=== PATIENT | male | born 1945 | race Caucasian/White ===

== ENCOUNTER 2018-01-14 13:53 | Emergency (ER) | payer OTHER, MEDICARE ==
[2018-01-14] MEDS ORDERED: ONDANSETRON 4 MG/2 ML VIAL IVP STA (14:19)
[2018-01-14] MEDS ORDERED: MORPHINE SULFATE 4 MG/ML SYRINGE IV STA (14:19)
[2018-01-14] MEDS ORDERED: SODIUM CHLORIDE 0.9% 1,000 ML IV STA (14:19)
[2018-01-14 14:43] LABS: Basophils % (A) 0 %; Eosinophils # (A) 0.2 k/uL (0-0.7); Eosinophils % (A) 3 %; HCT 42.3 % (39.0-53.0); HGB 14.6 gm/dL (13.0-17.5); Lymphocytes % (A) 17 %; MCH 32.7 pg (25.0-35.0); MCHC 34.5 g/dL (31.0-37.0); MCV 94.7 fL (80.0-100.0); Monocytes # (A) 0.5 k/uL (0-1.0); Monocytes % (A) 9 %; Neutrophils # (A) 4.2 k/uL (1.3-7.7); Neutrophils % (A) 69 %; Platelet Count 172 k/uL (150-450); RBC 4.46 m/uL (4.30-5.90); RDW 14.7 % (11.5-15.5); WBC 6.2 k/uL (3.8-10.6)
[2018-01-14 14:52] LABS: ALT 37 U/L (21-72); AST 25 U/L (17-59); Albumin 4.8 g/dL (3.5-5.0); Alkaline Phosphatase 58 U/L (38-126); Anion Gap 17 mmol/L; Blood Urea Nitrogen 27 mg/dL (9-20); Calcium 9.8 mg/dL (8.4-10.2); Carbon Dioxide 23 mmol/L (22-30); Chloride 105 mmol/L (98-107); Glucose 97 mg/dL (74-99); Sodium 145 mmol/L (137-145); Total Bilirubin 0.5 mg/dL (0.2-1.3); Total Protein 7.3 g/dL (6.3-8.2)
--- NOTE | 2018-01-14 14:55 | ED ---
Headache HPI - General Chief Complaint: Headache Stated Complaint: Headache Time Seen by Provider: 01/14/18 14:09 Mode of arrival: ambulatory Limitations: no limitations - History of Present Illness Initial Comments: 72 years old male presents with a headache ongoing for the last 3 weeks, he went to see his doctor at the [place] clinic yesterday they wanted to send her for a CAT scan down [place] his headache got worse he called his doctor at the [place] and they advised him to come to the [facility] [place] is mostly located over the frontal area over frontal sinuses bilaterally, he had a similar kind of a headache a few years ago at that time he was investigated for temporal arteritis in [place] he had a temporal artery biopsy done bilateral. He denies any neck stiffness no chest pain or shortness of breath no abdominal pain no frequency urgency dysuria no symptoms of TIA or CVA - Related Data Home Medications Medication Instructions Recorded Confirmed Hydrochlorothiazide [Hydrodiuril] 25 mg PO DAILY 04/26/14 01/14/18 Lisinopril [Zestril] 10 mg PO BID 04/26/14 01/14/18 Metoprolol Tartrate [Lopressor] 25 mg PO BID 04/26/14 01/14/18 Nitroglycerin Sl Tabs [Nitrostat] 0.4 mg SUBLINGUAL Q5M PRN 06/07/15 01/14/18 Aspirin 81 mg PO DAILY 01/14/18 01/14/18 Atorvastatin Calcium [Lipitor] 40 mg PO HS 01/14/18 01/14/18 Cholecalciferol [Vitamin D3] 1,000 unit PO HS 01/14/18 01/14/18 Clopidogrel Bisulfate [Plavix] 75 mg PO DAILY 01/14/18 01/14/18 Ferrous Sulfate [Feosol] 325 mg PO DAILY 01/14/18 01/14/18 Loratadine [Claritin] 10 mg PO DAILY 01/14/18 01/14/18 [place]-3 Fatty Acids/Fish Oil [Fish 1 cap PO BID 01/14/18 01/14/18 Oil 1,000 mg Softgel] Oxybutynin Chloride 5 mg PO TID 01/14/18 01/14/18 Tamsulosin [Flomax] 0.4 mg PO DAILY 01/14/18 01/14/18 Previous Rx's Medication Instructions Recorded predniSONE 50 mg PO DAILY #5 tablet 01/14/18 Allergies Allergy/AdvReac Type Severity Reaction Status Date / Time No Known Allergies Allergy Verified 01/14/18 14:07 Review of Systems ROS Statement: Those systems with pertinent positive or pertinent negative responses have been documented in the HPI. ROS Other: All systems not noted in ROS Statement are negative. Past Medical History Past Medical History: Coronary Artery Disease (CAD), Cancer, Hyperlipidemia, Hypertension Additional Past Medical History / Comment(s): Prostate CA/radiation History of Any Multi-Drug Resistant Organisms: None Reported Past Surgical History: Heart Catheterization With Stent Past Anesthesia/Blood Transfusion Reactions: No Reported Reaction Date of Last Stent Placement:: 2011 Past Psychological History: No Psychological Hx Reported Smoking Status: Former smoker Past Alcohol Use History: None Reported Past Drug Use History: None Reported General Exam - General Exam Comments Initial Comments: General: The patient is awake and alert, in no distress, and does not appear acutely ill. Skin: Skin is warm and dry and no rashes or lesions are noted. Eye: Pupils are equal, round and reactive to light, extra-ocular movements are intact; there is normal conjunctiva bilaterally. Ears, nose, mouth and throat: There are moist mucous membranes and no oral lesions. He is tender over the right temporal area Neck: The neck is supple, there is no tenderness , no neck stiffness no signs of any meningitis Cardiovascular: There is a regular rate and rhythm. No murmur, rub or gallop is appreciated. Respiratory: To auscultation bilateral, no wheezing no rhonchi no distress respiratory justin noticed Gastrointestinal: Soft, non-distended, non-tender abdomen without masses or organomegaly noted. There is no rebound or guarding present. Bowel sounds are unremarkable. Back: There is no tenderness to palpation in the midline. There is no obvious deformity. Musculoskeletal: Normal ROM, no tenderness, There is no pedal edema. There is no calf tenderness or swelling. No cords were appreciated. Neurological: CN II-XII intact, Cranial nerves III through XII are intact. There are no obvious motor or sensory deficits. Coordination appears grossly intact. Speech is normal. Psychiatric: Cooperative, appropriate mood & affect, normal judgment. Limitations: no limitations Course Vital Signs 01/14/18 13:59 Temperature 98.0 F Pulse Rate 69 Respiratory 118 H Rate Blood Pressure 180/83 O2 Sat by Pulse 98 Oximetry , His headache is ongoing for [address] is ordered along with the sed rate Reassessment term head CT is normal sed rate is within normal range white count is within normal range patient be [facility] he be gone home on a prednisone 50 mg once daily for next 5 days, he is not diabetic Medical Decision Making - Lab Data Result diagrams: 01/14/18 14:31 01/14/18 14:31 Lab Results 01/14/18 01/14/18 Range/Units 14:31 14:31 WBC 6.2 (3.8-10.6) k/uL RBC 4.46 (4.30-5.90) m/uL Hgb 14.6 (13.0-17.5) gm/dL Hct 42.3 (39.0-53.0) % MCV 94.7 (80.0-100.0) fL MCH 32.7 (25.0-35.0) pg MCHC 34.5 (31.0-37.0) g/dL RDW 14.7 (11.5-15.5) % Plt Count 172 (150-450) k/uL Neutrophils % 69 % Lymphocytes % 17 % Monocytes % 9 % Eosinophils % 3 % Basophils % 0 % Neutrophils # 4.2 (1.3-7.7) k/uL Lymphocytes # 1.0 (1.0-4.8) k/uL Monocytes # 0.5 (0-1.0) k/uL Eosinophils # 0.2 (0-0.7) k/uL Basophils # 0.0 (0-0.2) k/uL ESR 14 (0-15) mm/hr Sodium 145 (137-145) mmol/L Potassium 4.0 (3.5-5.1) mmol/L Chloride 105 (98-107) mmol/L Carbon Dioxide 23 (22-30) mmol/L Anion Gap 17 mmol/L BUN 27 H (9-20) mg/dL Creatinine 0.90 (0.66-1.25) mg/dL Est GFR (CKD-EPI)AfAm >90 (>60 ml/min/1.73 sqM) Est GFR (CKD-EPI)NonAf 86 (>60 ml/min/1.73 sqM) Glucose 97 (74-99) mg/dL Calcium 9.8 (8.4-10.2) mg/dL Total Bilirubin 0.5 (0.2-1.3) mg/dL AST 25 (17-59) U/L ALT 37 (21-72) U/L Alkaline Phosphatase 58 (38-126) U/L Total Protein 7.3 (6.3-8.2) g/dL Albumin 4.8 (3.5-5.0) g/dL Disposition Clinical Impression: Headache Disposition: HOME SELF-CARE Condition: Good Instructions: Acute Headache (ED) Prescriptions: predniSONE 50 mg PO DAILY #5 tablet Is patient prescribed a controlled substance at d/c from ED?: No When asked, does pt state using other controlled substances?: No If prescribed controlled substance>3 days was MAPS reviewed?: No If opioid is for acute pain is fill amount 7 days or less?: No If Rx opioid, was Start Talking consent form obtained?: No Referrals: [facility],Clinic [Primary Care Provider] - 1-2 days
--- NOTE | 2018-01-14 15:02 | CT ---
EXAMINATION TYPE: CT brain wo con DATE OF EXAM: 01/14/2018 COMPARISON: 06/07/2015 HISTORY: Worsening headache x [address] DLP: [address] of the brain was performed. The ventricles, basal cisterns and sulci overlying the cerebral convexities demonstrate mild enlargem ent. There is no evidence for intracranial hemorrhage or sulcal effacement. There is decreased attenuation about the periventricular white matter and deep white matter of both c erebral hemispheres, compatible with chronic small vessel ischemia. Differential diagnosis does inclu de demyelination. No mass effects are seen.No midline shift. Osseous calvarium is intact. If symptoms persist consider MRI. IMPRESSION: 1. Age related atrophic and chronic small vessel ischemic change without acute intracranial process s een at this time.
[2018-01-14 15:32] LABS: Erythrocyte Sedimentation Rate 14 mm/hr (0-15)
[2018-01-14 16:06] VITALS: BP 125/62; PULSE 55; RESP 18; TEMP 97.2
== END 2018-01-14 16:06 | disposition home or self-care (01) ==
LOC: EC 13:53
DX: R51 Headache (principal); I25.10 Atherosclerotic heart disease of native coronary artery without angina pectoris; E78.5 Hyperlipidemia, unspecified; I10 Essential (primary) hypertension; Z85.46 Personal history of malignant neoplasm of prostate; Z87.891 Personal history of nicotine dependence; Z79.02 Long term (current) use of antithrombotics/antiplatelets; Z79.82 Long term (current) use of aspirin; Z79.899 Other long term (current) drug therapy; Z95.1 Presence of aortocoronary bypass graft
CPT/HCPCS: 36415; 80053; 85652; 85025; 70450; 99284; 96374; 96375; 96361; J2270; J2405

== ENCOUNTER 2018-10-05 13:05 | Emergency (ER) | payer OTHER, MEDICARE ==
[2018-10-05 13:19] VITALS: RESP 18; TEMP 98.8
[2018-10-05] MEDS ORDERED: IBUPROFEN 600 MG TAB PO STA (14:17)
--- NOTE | 2018-10-05 14:57 | XR ---
EXAMINATION TYPE: XR chest 2V DATE OF EXAM: 10/05/2018 COMPARISON: Chest x-ray August 04, 2015 HISTORY: History of coronary artery disease presents with chest pain TECHNIQUE: Frontal and lateral views of the chest are obtained. FINDINGS: There is some chronic parenchymal change without suspicious focal air space opacity, pleur al effusion, or pneumothorax seen. The cardiac silhouette size is within normal limits. The osseou s structures are intact. IMPRESSION: No acute cardiopulmonary process. No significant change from prior.
--- NOTE | 2018-10-05 14:58 | XR ---
EXAMINATION TYPE: XR soft tissue neck DATE OF EXAM: 10/05/2018 COMPARISON: NONE HISTORY: 73-year-old male for trauma and pain TECHNIQUE: 2 views FINDINGS: Epiglottis is normal as are the prevertebral soft tissues. No subglottic airway narrowing. Nasopharyn x and oropharynx are patent. Endplate spondylosis in the cervical spine. No retained radiopaque forei gn body. IMPRESSION: No abnormal airway narrowing or specific abnormality seen.
--- NOTE | 2018-10-05 15:11 | ED ---
ENT HPI - General Chief complaint: ENT Stated complaint: Sore [facility] Source: patient Mode of arrival: ambulatory Limitations: no limitations - History of Present Illness Initial comments: 73-year-old male with past medical history of CAD hypertension presenting today for chief complaint of sore throat, congestion and cough. Patient states he has had a sore throat for the past week, he states it has begun to subside today. He states his is developing similar symptoms and has now developed a dry cough over the past 24 hours. He denies any fever, chills, night sweats. Patient denies any significant sputum production. Patient denies abdominal pain, nausea, vomiting, jaw pain, RE paresthesias, chest pain, dyspnea, dyspnea exertion. Patient denies any pain localized to the neck externally. He states he has pain with swallowing. He denies taking any medications prior to bedtime , denies ingestion of any large pills patient denies any history of thyroid disease, patient denies any history of GERD Patient denies radiation of pain or associated symptoms such as dizziness, headache. Patient denies any hemoptysis, vomiting, hematemesis. Patient denies any diarrhea No rashes. Upon arrival patient is well-appearing vital signs within normal limits. Patient states he attempted to obtain an appointment at the [place] clinic however he was told to come to the ER if he had a medical condition as they were closed today. Patient presented for evaluation. Upon arrival patient appears well in no acute distress. - Related Data Home Medications Medication Instructions Recorded Confirmed Hydrochlorothiazide [Hydrodiuril] 25 mg PO DAILY 04/26/14 01/14/18 Lisinopril [Zestril] 10 mg PO BID 04/26/14 01/14/18 Metoprolol Tartrate [Lopressor] 25 mg PO BID 04/26/14 01/14/18 Nitroglycerin Sl Tabs [Nitrostat] 0.4 mg SUBLINGUAL Q5M PRN 06/07/15 01/14/18 Aspirin 81 mg PO DAILY 01/14/18 01/14/18 Atorvastatin Calcium [Lipitor] 40 mg PO HS 01/14/18 01/14/18 Cholecalciferol [Vitamin D3] 1,000 unit PO HS 01/14/18 01/14/18 Clopidogrel Bisulfate [Plavix] 75 mg PO DAILY 01/14/18 01/14/18 Ferrous Sulfate [Feosol] 325 mg PO DAILY 01/14/18 01/14/18 Loratadine [Claritin] 10 mg PO DAILY 01/14/18 01/14/18 [place]-3 Fatty Acids/Fish Oil [Fish 1 cap PO BID 01/14/18 01/14/18 Oil 1,000 mg Softgel] Oxybutynin Chloride 5 mg PO TID 01/14/18 01/14/18 Tamsulosin [Flomax] 0.4 mg PO DAILY 01/14/18 01/14/18 Previous Rx's Medication Instructions Recorded predniSONE 50 mg PO DAILY #5 tablet 01/14/18 Allergies Allergy/AdvReac Type Severity Reaction Status Date / Time No Known Allergies Allergy Verified 10/05/18 13:19 Review of Systems ROS Statement: Those systems with pertinent positive or pertinent negative responses have been documented in the HPI. ROS Other: All systems not noted in ROS Statement are negative. Past Medical History Past Medical History: Coronary Artery Disease (CAD), Cancer, Hyperlipidemia, Hypertension Additional Past Medical History / Comment(s): Prostate CA/radiation History of Any Multi-Drug Resistant Organisms: None Reported Past Surgical History: Heart Catheterization With Stent Past Anesthesia/Blood Transfusion Reactions: No Reported Reaction Date of Last Stent Placement:: 2011 Past Psychological History: No Psychological Hx Reported, Depression, PTSD Smoking Status: Former smoker Past Alcohol Use History: Rare Past Drug Use History: None Reported General Exam - General Exam Comments Initial Comments: General: The patient is awake and alert, in no distress, and does not appear acutely ill. Eye: +3 mm pupils are equal, round and reactive to light, extra-ocular movements are intact. No nystagmus. There is normal conjunctiva bilaterally. No signs of icterus. Ears, nose, mouth and throat: There are moist mucous membranes and no oral lesions. Oropharynx erythematous, no tonsillar enlargement or exudates lesions. Uvula midline. No muffled voice no tripoding. Patient is able to swallow without difficulty. No anterior cervical lymph adenopathy. No lesions of the face or tympanic membranes. External auditory canals the normal limits. No nuchal rigidity, there is no pain to palpation of the neck externally. Neck: The neck is supple, there is no tenderness or JVD. Cardiovascular: There is a regular rate and rhythm. No murmur, rub or gallop is appreciated. Respiratory: Lungs are clear to auscultation, respirations are non-labored, breath sounds are equal. No wheezes, stridor, rales, or rhonchi. Dry cough on exam. Gastrointestinal: Soft, non-distended, non-tender abdomen without masses or organomegaly noted. There is no rebound or guarding present. No CVA tenderness. Bowel sounds are unremarkable. Musculoskeletal: Normal ROM, no tenderness. Strength 5/5. Sensation intact. Radial pulses equal bilaterally 2+. Neurological: A&O x 3. CN II-XII intact, There are no obvious motor or sensory deficits. Coordination appears grossly intact. Speech is normal. Skin: Skin is warm and dry and no rashes or lesions are noted. Psychiatric: Cooperative, appropriate mood & affect, normal judgment. Limitations: no limitations Course Vital Signs 10/05/18 10/05/18 13:13 15:15 Temperature 98.8 F Pulse Rate 70 68 Respiratory 18 18 Rate Blood Pressure 121/72 116/62 O2 Sat by Pulse 95 98 Oximetry Medical Decision Making - Medical Decision Making Well-appearing 73-year-old male presenting with upper respiratory symptoms. Patient does have a with similar symptoms. Strep testing and implanted testing negative. Chest x-ray negative for acute process. Patient denies any concerning associated symptoms. Patient appears well vital signs within acceptable limits. Patient does not have a concerning history for esophagitis, he does not history of thyroid disease or GERD. At this time do feel patient is stable for discharge with follow-up with ears nose throat for persistent symptoms. [facility] provider in the next 1-2 days. Patient is agreeable plan discharge tonight questions at this time. Patient started to use ibuprofen or Tylenol for pain management. Patient states there has been improvement since the initial onset. Patient discharged stable condition appearing well I did discuss the case with attending provider Dr. Prakash prior to patient's discharge. I discussed return parameters at length and in detail with patient who verbalized understanding. - Lab Data Lab Results 10/05/18 10/05/18 Range/Units 13:46 13:46 Influenza Type A RNA Not Detected (Not Detectd) Influenza Type B (PCR) Not Detected (Not Detectd) Group A Strep Rapid Negative (Negative) Disposition Clinical Impression: Pharyngitis Disposition: HOME SELF-CARE Condition: Good Instructions (If sedation given, give patient instructions): Pharyngitis (ED) Additional Instructions: Please use medication as discussed. Please follow-up with family doctor in the next 2 days, please follow-up with ENT as discussed in next 2-3 days. Please return to emergency room if the symptoms increase or worsen or for any other concerns. Is patient prescribed a controlled substance at d/c from ED?: No Referrals: [facility],Clinic [Primary Care Provider] - 1-2 days Go Byrd DO [Doctor of Osteopathic Medicine] - 1-2 days Time of Disposition: 15:10
[2018-10-05 15:17] VITALS: BP 116/62; PULSE 68
== END 2018-10-05 15:14 | disposition home or self-care (01) ==
LOC: EC 13:05
DX: J02.9 Acute pharyngitis, unspecified (principal); E78.5 Hyperlipidemia, unspecified; I10 Essential (primary) hypertension; I25.10 Atherosclerotic heart disease of native coronary artery without angina pectoris; Z87.891 Personal history of nicotine dependence; Z79.02 Long term (current) use of antithrombotics/antiplatelets; Z79.82 Long term (current) use of aspirin; Z79.899 Other long term (current) drug therapy; Z85.46 Personal history of malignant neoplasm of prostate; Z92.3 Personal history of irradiation; Z95.5 Presence of coronary angioplasty implant and graft
CPT/HCPCS: 70360; 71046; 87081; 87430; 87502; 99283

== ENCOUNTER → 2019-01-12 | Outpatient (CLI) | payer MEDICARE, OTHER ==
--- NOTE | 2019-01-12 12:34 | CONS ---
CONSULTATION DATE OF SERVICE: 01/12/2019 This 73-year-old gentleman has been evaluated in the sleep center for possible obstructive sleep apnea-hypopnea syndrome. HISTORY OF PRESENT ILLNESS/SLEEP-WAKE EVALUATION: Patient usual sleep schedule from 11 p.m. to 6 a.m. Sometimes he does have problem with falling asleep, has TV set in bedroom, usually sleeps on the side position in a separate room from his because of the significantly extremely loud snoring. He wakes up from sleep around 4 times with nocturia and dry mouth. Has to drink water at night time. In the morning, he wakes up tired, has difficulties to pay attention, worries about his sleep, has problems with memory, concentration, irritability, depression, anxiety, . [place] Sleepiness Scale is 5. He usually takes one nap afternoon, usually feels refreshed after a nap and can see dreams during nap. The patient has significant amount of bad and vivid dreams during the night. Usually no out of dream movements or kicking. PAST MEDICAL HISTORY: Positive for coronary artery disease, status post stent insertion, hypertension, history of stroke in 2015 with losing vision in the right eye after stroke, prostate CA with status post radiation therapy, hyperlipidemia, iron deficiency anemia, allergies, nasal septum deviation. PAST SURGICAL HISTORY: Stent insertion in 2010, brain biopsy in 2014 when the patient lost his vision right eye. MEDICATIONS: Baby aspirin, ferrous sulfate supplement, oxybutynin, hydrochlorothiazide, tamsulosin, clopidogrel, metoprolol, lisinopril, atorvastatin, vitamin D supplement. SOCIAL HISTORY: Positive for smoking about one pack for 20 years, quit 25 years ago. Alcohol consumption about once per week or 2 weeks. FAMILY HISTORY: Hypertension, hyperlipidemia, stroke, sinus problems, sleep apnea, headaches, cancer, acid reflux, pneumonia, prostate CA, mother history of cancer of the eye. REVIEW OF SYSTEMS: Multiple awakenings during the sleep, tiredness and sleepiness during the day. PHYSICAL EXAMINATION: During physical exam, a gentleman without distress. VITAL SIGNS: BP 132/65, HR 64, RR 16, height 5 feet 8 inches, weight 245 pounds, BMI 37.2, temperature 98.4, oxygen saturation at room air 95%. HEENT: PERRLA, EOMI. Oropharynx extremely low position of soft palate. Mallampati 4. Some restriction of nasal breathing. Small pupils. Patient does not see with his right eye. NECK: Wide neck 19 inches in circumference. LUNGS: Clear to percussion and to auscultation. Good air exchange. No wheezing or rhonchi. HEART: S1, S2 regular. No murmurs, gallops, or rubs. ABDOMEN: Obese. EXTREMITIES: No clubbing or cyanosis. DESIGN TRANSFERRER: Awake, alert, and oriented X3. Cranial nerves 2 to 7 intact. There is no fasciculation or atrophy. noted. No focal deficits observed. IMPRESSION: 1. Loud snoring, multiple awakenings from sleep with dry mouth, extremely low position of soft palate, Mallampati 4, some restriction of nasal breathing, wide neck, obstructive sleep apnea-hypopnea syndrome. 2. Obesity, body mass index 37.2. 3. Hypertension. 4. Coronary artery disease, status post stent insertion. 5. History of stroke in 2015 with loss of vision of the right eye after stroke. 6. History of prostate carcinoma, status post radiation treatment. 7. Hyperlipidemia. 8. History of iron deficiency anemia. 9. Allergy. 10.Some restriction of nasal breathing, possibly nasal septum deviation, asymmetric nostrils. PLAN: 1. Polysomnography for evaluation of patient's breathing during sleep. 2. CPAP/BiPAP titration if sleep study confirms obstructive sleep apnea-hypopnea syndrome. 3. Preferable position during sleep on the side. 4. No driving if patient feels any sleepiness. 5. I will see patient for follow up visit to explain results of testing and following plan. Thank you very much for referring this patient for consultation. Sincerely, Jamil Connell MD, PhD, FAASM Diplomat of [place] [employer] [place] [employer] Serology Teacher of [facility] [place] MMODL / IJN: [id number] /
== END | disposition home or self-care (01) ==
LOC: SLEEP 10:55
PROVIDERS: ATTEND Internal Medicine
DX: G47.33 Obstructive sleep apnea (adult) (pediatric) (principal); R35.1 Nocturia; E66.9 Obesity, unspecified; I10 Essential (primary) hypertension; I25.10 Atherosclerotic heart disease of native coronary artery without angina pectoris; I69.398 Other sequelae of cerebral infarction; H53.8 Other visual disturbances; E78.5 Hyperlipidemia, unspecified; D50.9 Iron deficiency anemia, unspecified; T78.40XA Allergy, unspecified, initial encounter; Z85.46 Personal history of malignant neoplasm of prostate; Z92.3 Personal history of irradiation; Z68.37 Body mass index [BMI] 37.0-37.9, adult; Z83.6 Family history of other diseases of the respiratory system; Z87.891 Personal history of nicotine dependence; Z95.5 Presence of coronary angioplasty implant and graft; Z79.82 Long term (current) use of aspirin; Z79.02 Long term (current) use of antithrombotics/antiplatelets; Z79.899 Other long term (current) drug therapy
CPT/HCPCS: 99211

== ENCOUNTER 2019-10-16 19:20 | Observation (INO) | payer OTHER ==
[2019-10-16] MEDS ORDERED: ASPIRIN 81 MG PO STA (19:40)
[2019-10-16] MEDS ORDERED: NITROGLYCERIN OINT 1 INCH/GM PACKET TOPICAL STA (19:40)
--- NOTE | 2019-10-16 19:49 | ED ---
General Adult HPI - General Chief complaint: Chest Pain Stated complaint: Chest pain Time Seen by Provider: 10/16/19 19:26 Source: patient, RN notes reviewed Mode of arrival: wheelchair Limitations: no limitations - History of Present Illness Initial comments: Patient is a pleasant 74-year-old male presenting to the emergency Department with complaints of chest discomfort. Patient had 2 episodes today. Discomfort is near resolved at this time, rated 1/10. Discomfort is described as tightness in the chest without radiation. Patient did have some associated dyspnea, nausea, and diaphoresis. Patient has a episode around 2:00 today and the second one prior to arrival. Patient does have previous cardiac history including stent placement. Patient did have recent stress test and reported negative heart catheterization several weeks ago. No leg pain or leg swelling. - Related Data Home Medications Medication Instructions Recorded Confirmed Hydrochlorothiazide [Hydrodiuril] 25 mg PO DAILY 04/26/14 01/14/18 Lisinopril [Zestril] 10 mg PO BID 04/26/14 01/14/18 Metoprolol Tartrate [Lopressor] 25 mg PO BID 04/26/14 01/14/18 Nitroglycerin Sl Tabs [Nitrostat] 0.4 mg SUBLINGUAL Q5M PRN 06/07/15 01/14/18 Aspirin 81 mg PO DAILY 01/14/18 01/14/18 Atorvastatin Calcium [Lipitor] 40 mg PO HS 01/14/18 01/14/18 Cholecalciferol [Vitamin D3] 1,000 unit PO HS 01/14/18 01/14/18 Clopidogrel Bisulfate [Plavix] 75 mg PO DAILY 01/14/18 01/14/18 Ferrous Sulfate [Feosol] 325 mg PO DAILY 01/14/18 01/14/18 Loratadine [Claritin] 10 mg PO DAILY 01/14/18 01/14/18 [place]-3 Fatty Acids/Fish Oil [Fish 1 cap PO BID 01/14/18 01/14/18 Oil 1,000 mg Softgel] Oxybutynin Chloride 5 mg PO TID 01/14/18 01/14/18 Tamsulosin [Flomax] 0.4 mg PO DAILY 01/14/18 01/14/18 Previous Rx's Medication Instructions Recorded predniSONE 50 mg PO DAILY #5 tablet 01/14/18 Allergies Allergy/AdvReac Type Severity Reaction Status Date / Time No Known Allergies Allergy Verified 10/16/19 19:26 Review of Systems ROS Statement: Those systems with pertinent positive or pertinent negative responses have been documented in the HPI. ROS Other: All systems not noted in ROS Statement are negative. Constitutional: Denies: fever Eyes: Denies: eye pain ENT: Denies: ear pain Respiratory: Reports: as per HPI. Denies: cough Cardiovascular: Reports: as per HPI, chest pain Endocrine: Denies: fatigue Gastrointestinal: Reports: nausea Genitourinary: Denies: dysuria Musculoskeletal: Denies: back pain Skin: Denies: rash, lesions Neurological: Denies: headache Past Medical History Past Medical History: Coronary Artery Disease (CAD), Cancer, Hyperlipidemia, Hypertension Additional Past Medical History / Comment(s): Prostate CA/radiation History of Any Multi-Drug Resistant Organisms: None Reported Past Surgical History: Heart Catheterization With Stent Past Anesthesia/Blood Transfusion Reactions: No Reported Reaction Date of Last Stent Placement:: 2011 Past Psychological History: No Psychological Hx Reported, Depression, PTSD Smoking Status: Former smoker Past Alcohol Use History: Rare Past Drug Use History: None Reported General Exam Limitations: no limitations General appearance: alert, in no apparent distress Head exam: Present: normocephalic Eye exam: Present: normal appearance, EOMI ENT exam: Present: normal oropharynx Neck exam: Present: normal inspection Respiratory exam: Present: normal lung sounds bilaterally. Absent: chest wall tenderness Cardiovascular Exam: Present: regular rate, normal rhythm Expanded Peripheral pulses: 2+: Radial (R), Radial (L), Posterior Tibialis (R), Posterior Tibialis (L), Dorsalis Pedis (R), Dorsalis Pedis (L) GI/Abdominal exam: Present: soft. Absent: tenderness Extremities exam: Present: normal inspection. Absent: pedal edema, calf tenderness Neurological exam: Present: alert Psychiatric exam: Present: normal affect, normal mood Skin exam: Present: normal color Course Vital Signs 10/16/19 19:21 Temperature 98.0 F Pulse Rate 76 Respiratory 16 Rate Blood Pressure 167/69 O2 Sat by Pulse 97 Oximetry EKG Findings - EKG Comments: EKG Findings:: Normal sinus rhythm 77. [place] 144. QRS 94. QT 36. QTc 436. Normal axis. Normal QRS. No acute ST change. Medical Decision Making - Medical Decision Making Patient reevaluated and resting comfortably in bed, symptom-free. Patient family updated on results and plan. Case was discussed in detail with Dr. Hussein, who will admit covering for this [facility]. - Lab Data Result diagrams: 10/16/19 20:00 10/16/19 20:00 Lab Results 10/16/19 10/16/19 10/16/19 Range/Units 20:00 20:00 20:00 WBC 7.8 (3.8-10.6) k/uL RBC 4.35 (4.30-5.90) m/uL Hgb 14.2 (13.0-17.5) gm/dL Hct 41.7 (39.0-53.0) % MCV 96.0 (80.0-100.0) fL MCH 32.7 (25.0-35.0) pg MCHC 34.1 (31.0-37.0) g/dL RDW 14.4 (11.5-15.5) % Plt Count 162 (150-450) k/uL Neutrophils % 74 % Lymphocytes % 13 % Monocytes % 7 % Eosinophils % 3 % Basophils % 0 % Neutrophils # 5.8 (1.3-7.7) k/uL Lymphocytes # 1.0 (1.0-4.8) k/uL Monocytes # 0.5 (0-1.0) k/uL Eosinophils # 0.2 (0-0.7) k/uL Basophils # 0.0 (0-0.2) k/uL Poikilocytosis Slight PT 10.2 (9.0-12.0) sec INR 1.0 (<1.2) APTT 25.7 (22.0-30.0) sec D-Dimer 0.33 (<0.60) mg/L FEU Sodium 136 L (137-145) mmol/L Potassium 3.8 (3.5-5.1) mmol/L Chloride 101 (98-107) mmol/L Carbon Dioxide 24 (22-30) mmol/L Anion Gap 11 mmol/L BUN 27 H (9-20) mg/dL Creatinine 1.11 (0.66-1.25) mg/dL Est GFR (CKD-EPI)AfAm 77 (>60 ml/min/1.73 sqM) Est GFR (CKD-EPI)NonAf 66 (>60 ml/min/1.73 sqM) Glucose 117 H (74-99) mg/dL Calcium 10.3 H (8.4-10.2) mg/dL Magnesium 1.9 (1.6-2.3) mg/dL Total Bilirubin 0.8 (0.2-1.3) mg/dL AST 30 (17-59) U/L ALT 29 (4-49) U/L Alkaline Phosphatase 59 (38-126) U/L Troponin I (0.000-0.034) ng/mL Total Protein 7.5 (6.3-8.2) g/dL Albumin 4.9 (3.5-5.0) g/dL 10/16/19 Range/Units 20:00 WBC (3.8-10.6) k/uL RBC (4.30-5.90) m/uL Hgb (13.0-17.5) gm/dL Hct (39.0-53.0) % MCV (80.0-100.0) fL MCH (25.0-35.0) pg MCHC (31.0-37.0) g/dL RDW (11.5-15.5) % Plt Count (150-450) k/uL Neutrophils % % Lymphocytes % % Monocytes % % Eosinophils % % Basophils % % Neutrophils # (1.3-7.7) k/uL Lymphocytes # (1.0-4.8) k/uL Monocytes # (0-1.0) k/uL Eosinophils # (0-0.7) k/uL Basophils # (0-0.2) k/uL Poikilocytosis PT (9.0-12.0) sec INR (<1.2) APTT (22.0-30.0) sec D-Dimer (<0.60) mg/L FEU Sodium (137-145) mmol/L Potassium (3.5-5.1) mmol/L Chloride (98-107) mmol/L Carbon Dioxide (22-30) mmol/L Anion Gap mmol/L BUN (9-20) mg/dL Creatinine (0.66-1.25) mg/dL Est GFR (CKD-EPI)AfAm (>60 ml/min/1.73 sqM) Est GFR (CKD-EPI)NonAf (>60 ml/min/1.73 sqM) Glucose (74-99) mg/dL Calcium (8.4-10.2) mg/dL Magnesium (1.6-2.3) mg/dL Total Bilirubin (0.2-1.3) mg/dL AST (17-59) U/L ALT (4-49) U/L Alkaline Phosphatase (38-126) U/L Troponin I <0.012 (0.000-0.034) ng/mL Total Protein (6.3-8.2) g/dL Albumin (3.5-5.0) g/dL - Radiology Data Radiology results: image reviewed (Chest x-ray shows no acute) Disposition Clinical Impression: Chest pain Disposition: ADMITTED IP TO THIS HOSP Is patient prescribed a controlled substance at d/c from ED?: No Referrals: [facility],Clinic [Primary Care Provider] - 1-2 days Decision Time: 20:43
[2019-10-16 20:06] LABS: Basophils % (A) 0 %; Eosinophils # (A) 0.2 k/uL (0-0.7); Eosinophils % (A) 3 %; HCT 41.7 % (39.0-53.0); HGB 14.2 gm/dL (13.0-17.5); Lymphocytes % (A) 13 %; MCH 32.7 pg (25.0-35.0); MCHC 34.1 g/dL (31.0-37.0); Mean Platelet Volume 7.2; Monocytes # (A) 0.5 k/uL (0-1.0); Monocytes % (A) 7 %; Neutrophils # (A) 5.8 k/uL (1.3-7.7); Neutrophils % (A) 74 %; Platelet Count 162 k/uL (150-450); Poikilocytosis Slight; RBC 4.35 m/uL (4.30-5.90); RDW 14.4 % (11.5-15.5); WBC 7.8 k/uL (3.8-10.6)
--- NOTE | 2019-10-16 20:12 | XR ---
EXAMINATION TYPE: XR chest 2V DATE OF EXAM: 10/16/2019 COMPARISON: 10/05/2018 HISTORY: Sore throat TECHNIQUE: 2 views FINDINGS: Heart is normal. Lungs are clear of infiltrate. There are no hilar masses. Costophrenic ang les are clear. There are chest leads. IMPRESSION: Normal chest. No change.
[2019-10-16 20:15] LABS: Albumin 4.9 g/dL (3.5-5.0); Calcium 10.3 mg/dL (8.4-10.2); Magnesium 1.9 mg/dL (1.6-2.3); Potassium 3.8 mmol/L (3.5-5.1); Total Bilirubin 0.8 mg/dL (0.2-1.3); Total Protein 7.5 g/dL (6.3-8.2)
[2019-10-16 20:30] LABS: D-Dimer 0.33 mg/L FEU (<0.60); Partial Thromboplastin Time 25.7 sec (22.0-30.0); Prothrombin Time 10.2 sec (9.0-12.0)
[2019-10-16] MEDS ORDERED: NITROGLYCERIN SL TABS 0.4 MG TAB SUBLINGUAL PRN (20:43)
[2019-10-16] MEDS: NITROGLYCERIN OINT 1 INCH/GM PACKET TOPICAL SCH (23:14)
[2019-10-17 01:09] VITALS: RESP 18
[2019-10-17] MEDS: NITROGLYCERIN OINT 1 INCH/GM PACKET TOPICAL SCH (03:18)
[2019-10-17 03:28] LABS: Cholesterol 141 mg/dL (<200); HDL Cholesterol 28 mg/dL (40-60); Triglycerides 505 mg/dL (<150)
[2019-10-17] MEDS ORDERED: LISINOPRIL 10 MG TAB PO SCH (09:00)
[2019-10-17] MEDS ORDERED: ASPIRIN 325 MG TAB PO SCH (09:00)
[2019-10-17] MEDS ORDERED: METOPROLOL TARTRATE 25 MG TAB PO SCH (09:00)
[2019-10-17] MEDS ORDERED: ASPIRIN 81 MG PO SCH (09:00)
[2019-10-17] MEDS ORDERED: HYDROCHLOROTHIAZIDE 25 MG TAB PO SCH (09:00)
--- NOTE | 2019-10-17 09:24 | US ---
EXAMINATION TYPE: US gallbladder DATE OF EXAM: 10/17/2019 COMPARISON: NONE CLINICAL HISTORY: pain after eating. EXAM MEASUREMENTS: Liver Length: 19.9 cm Gallbladder Wall: 0.2 cm CBD: 0.4 cm Right Kidney: 9.4 x 5.8 x 5.0 cm Pancreas: Tail obscured by overlying bowel gas, visualized portions Liver: Attenuating, enlarged, echogenic echotexture. Hypoechoic area adjacent to the gallbladder nell suring 2.1 x 1.3 x 1.0 cm, possible focal fatty sparring Gallbladder: wnl Evidence for sonographic Montalvo's sign: No CBD: wnl Right Kidney: No hydronephrosis or masses seen IMPRESSION: 1. Findings most commonly related to hepatic steatosis with possible focal fatty sparing near the gal lbladder fossa versus less likely hepatic mass. However further characterization with three-phase enh anced CT is recommended for further evaluation of this finding. 2. No sonographic evidence of cholelithiasis nor acute cholecystitis.
[2019-10-17] MEDS ORDERED: PANTOPRAZOLE 40 MG/10 ML VIAL IVP SCH (10:00)
--- NOTE | 2019-10-17 10:14 | P.CRDCN ---
History of Present Illness History of present illness: HISTORY OF PRESENTING ILLNESS This is a pleasant 74-year-old male past medical history significant for or an area artery disease status post PCI in 2012, hypertension, dyslipidemia, former nicotine dependence, prostate cancer s/p radiation and obesity. 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 We have been asked to see in consultation for chest pain. He states yesterday after eating a piece of ham he felt a tight sensation in the midsternal region associated with nausea and diaphoresis. There is no radiation to the arm, back, neck or jaw. He denies any shortness of breath, dizziness or palpitations. He states he has recently undergone a stress testing cardiac catheterization at the [facility] in [place] via the right radial artery. According to the patient his stress test was abnormal and heart catheterization was normal. He also has been dealing with a possibility of reoccurrence of prostates cancer, awaiting biopsy next month. DIAGNOSTICS EKG reveals sinus mechanism with no acute ST or T wave abnormalities noted. Chest xray negative for an acute cardiopulmonary process. Laboratory reviewed, EBC unremarkable, d-dimer 0.33, sodium 136, potassium 3.8, creatinine 1.11, magnesium 1.9, cardiac enzymes negative 2, LDL unable to be calculated secondary to significantly high triglycerides of 505. Current cardiac medications include aspirin 81 mg daily, atorvastatin 40 mg daily, Plavix 75 mg daily, hydrochlorothiazide 25 mg daily, lisinopril 10 mg twice a day and Lopressor 25 mg twice a day. REVIEW OF SYSTEMS At the time of my exam: CONSTITUTIONAL: Denies fever or chills. CARDIOVASCULAR: Denies chest pain, shortness of breath, orthopnea, PND or palpitations. RESPIRATORY: Denies cough. GASTROINTESTINAL: Denies abdominal pain, diarrhea, constipation, nausea or vomiting. MUSCULOSKELETAL: Denies myalgias. NEUROLOGIC: Denies numbness, tingling or weakness. ENDOCRINE: Denies fatigue, weight change, polydipsia or polyurina. GENITOURINARY: Denies burning, hematuria or urgency with micturation. HEMATOLOGIC: Denies history of anemia or bleeding. PHYSICAL EXAMINATION Blood pressure 120/71 heart rate 54 afebrile and maintaining oxygen saturation on room air. CONSTITUTIONAL: No apparent distress. HEENT: Head is normocephalic. Pupils are equal, round. Sclerae anicteric. Mucous membranes of the mouth are moist. No JVD. No carotid bruit. CHEST EXAMINATION: Lungs are clear to auscultation. No chest wall tenderness is noted on palpation or with deep breathing. HEART EXAMINATION: Regular rate and rhythm. S1, S2 heard. No murmurs, gallops or rub. ABDOMEN: Soft, nontender. Positive bowel sounds. EXTREMITIES: 2+ peripheral pulses, no lower extremity edema and no calf tenderness. NEUROLOGIC EXAMINATION: Patient is awake, alert and oriented x3. ASSESSMENT Chest pain, atypical. An acute coronary event has been ruled out. History of coronary artery disease status post PCI 2011, exact details unavailable Hypertension Dyslipidemia History of prostate cancer status post radiation Former nicotine dependence Obesity, BMI 36 PLAN An acute coronary event has been ruled out. Patient states his cardiac catheterization less than one along the was normal. We will request a copy of that from the [facility] for review. Obtain ultrasound of the gallbladder to rule out underlying gallbladder disease. Management per primary care team. Stable from a cardiac perspective. Thank you kindly for this consultation. Nurse Practitioner note has been reviewed, I agree with a documented findings and plan of care. Patient was seen and examined. Past Medical History Past Medical History: Coronary Artery Disease (CAD), Cancer, Hyperlipidemia, Hypertension Additional Past Medical History / Comment(s): Prostate CA/radiation History of Any Multi-Drug Resistant Organisms: None Reported Past Surgical History: Heart Catheterization With Stent Past Anesthesia/Blood Transfusion Reactions: No Reported Reaction Date of Last Stent Placement:: 2011 Past Psychological History: No Psychological Hx Reported, Depression, PTSD Smoking Status: Former smoker Past Alcohol Use History: Rare Past Drug Use History: None Reported - Past Family History Father Family Medical History: Blood Disorder, Coronary Artery Disease (CAD) Mother Family Medical History: Cancer, Coronary Artery Disease (CAD) Medications and Allergies Home Medications Medication Instructions Recorded Confirmed Type Hydrochlorothiazide [Hydrodiuril] 25 mg PO DAILY 04/26/14 01/14/18 History Lisinopril [Zestril] 10 mg PO BID 04/26/14 01/14/18 History Metoprolol Tartrate [Lopressor] 25 mg PO BID 04/26/14 01/14/18 History Nitroglycerin Sl Tabs [Nitrostat] 0.4 mg SUBLINGUAL Q5M PRN 06/07/15 01/14/18 History Aspirin 81 mg PO DAILY 01/14/18 01/14/18 History Atorvastatin Calcium [Lipitor] 40 mg PO HS 01/14/18 01/14/18 History Cholecalciferol [Vitamin D3 (25 1,000 unit PO HS 01/14/18 01/14/18 History Mcg = 1000 Iu)] Clopidogrel Bisulfate [Plavix] 75 mg PO DAILY 01/14/18 01/14/18 History Ferrous Sulfate [Iron (65 MG 325 mg PO DAILY 01/14/18 01/14/18 History Elemental)] Loratadine [Claritin] 10 mg PO DAILY 01/14/18 01/14/18 History [place]-3 Fatty Acids/Fish Oil [Fish 1 cap PO BID 01/14/18 01/14/18 History Oil 1,000 mg Softgel] Oxybutynin Chloride 5 mg PO TID 01/14/18 01/14/18 History Tamsulosin [Flomax] 0.4 mg PO DAILY 01/14/18 01/14/18 History predniSONE 50 mg PO DAILY #5 tablet 01/14/18 Rx Omeprazole [PriLOSEC] 40 mg PO [id number] #14 capsule. 10/17/19 Rx Allergies Allergy/AdvReac Type Severity Reaction Status Date / Time No Known Allergies Allergy Verified 10/16/19 19:26 Physical Exam Vitals: Vital Signs Temp Pulse Pulse Resp BP BP Pulse Ox 10/17/19 07:25 98.4 F 54 L 18 120/71 95 10/17/19 04:00 98.6 F 89 18 151/79 96 10/17/19 00:00 98.6 F 70 18 153/73 96 10/16/19 22:00 98.3 F 70 18 160/71 93 L 10/16/19 21:25 70 18 10/16/19 21:11 87 16 145/79 99 10/16/19 19:21 98.0 F 76 16 167/69 97 Intake and Output 10/16/19 10/17/19 10/17/19 22:59 06:59 14:59 Other: # Voids 1 Weight 108.409 kg 108.3 kg Results 10/16/19 20:00 10/16/19 20:00 Cardiac Enzymes 10/16/19 10/16/19 10/17/19 Range/Units 20:00 20:00 02:51 AST 30 (17-59) U/L Troponin I <0.012 <0.012 (0.000-0.034) ng/mL Coagulation 10/16/19 Range/Units 20:00 PT 10.2 (9.0-12.0) sec APTT 25.7 (22.0-30.0) sec Lipids 10/17/19 Range/Units 02:51 Triglycerides 505 H (<150) mg/dL Cholesterol 141 (<200) mg/dL HDL Cholesterol 28 L (40-60) mg/dL CBC 10/16/19 Range/Units 20:00 WBC 7.8 (3.8-10.6) k/uL RBC 4.35 (4.30-5.90) m/uL Hgb 14.2 (13.0-17.5) gm/dL Hct 41.7 (39.0-53.0) % Plt Count 162 (150-450) k/uL Comprehensive Metabolic Panel 10/16/19 Range/Units 20:00 Sodium 136 L (137-145) mmol/L Potassium 3.8 (3.5-5.1) mmol/L Chloride 101 (98-107) mmol/L Carbon Dioxide 24 (22-30) mmol/L BUN 27 H (9-20) mg/dL Creatinine 1.11 (0.66-1.25) mg/dL Glucose 117 H (74-99) mg/dL Calcium 10.3 H (8.4-10.2) mg/dL AST 30 (17-59) U/L ALT 29 (4-49) U/L Alkaline Phosphatase 59 (38-126) U/L Total Protein 7.5 (6.3-8.2) g/dL Albumin 4.9 (3.5-5.0) g/dL Current Medications Generic Name Dose Route Start Last Admin Trade Name Freq PRN Reason Stop Dose Admin Aspirin 325 mg 10/17/19 09:00 Aspirin PO DAILY PETE Nitroglycerin 0.4 mg 10/16/19 20:43 Nitrostat SUBLINGUAL Q5M PRN Chest Pain Nitroglycerin 1 inch 10/17/19 00:00 10/17/19 03:18 Nitro-Bid Oint TOPICAL Not Given Q6HR PETE Intake and Output 02/23/20 02/24/20 02/24/20 22:59 06:59 14:59 Other: # Voids 1 Weight 108.409 kg 108.3 kg 10/16/19 20:00 10/16/19 20:00
--- NOTE | 2019-10-17 10:51 | P.DS ---
Providers Date of admission: 10/16/19 20:43 Attending physician: Michael Massey MD Consults: 10/16/19 20:43 Consult Physician Urgent Consulting Provider: Vargas Hudson Consult Reason/Comments: cp Do you want consulting provider notified?: Yes Primary care physician: [facility] Hospital Course: Please refer to HPI for further details Plan - Discharge Summary Discharge Rx Participant: No New Discharge Prescriptions: New Omeprazole [PriLOSEC] 40 mg PO AC-BRKFST #14 capsule.dr Continue Metoprolol Tartrate [Lopressor] 25 mg PO BID Hydrochlorothiazide [Hydrodiuril] 25 mg PO DAILY Lisinopril [Zestril] 10 mg PO BID Nitroglycerin Sl Tabs [Nitrostat] 0.4 mg SUBLINGUAL Q5M PRN PRN Reason: Chest Pain Aspirin 81 mg PO DAILY Atorvastatin Calcium [Lipitor] 40 mg PO HS Cholecalciferol [Vitamin D3 (25 Mcg = 1000 Iu)] 1,000 unit PO HS Clopidogrel Bisulfate [Plavix] 75 mg PO DAILY Ferrous Sulfate [Iron (65 MG Elemental)] 325 mg PO DAILY Loratadine [Claritin] 10 mg PO DAILY [place]-3 Fatty Acids/Fish Oil [Fish Oil 1,000 mg Softgel] 1 cap PO BID Oxybutynin Chloride 5 mg PO TID Tamsulosin [Flomax] 0.4 mg PO DAILY predniSONE 50 mg PO DAILY #5 tablet Discharge Medication List Hydrochlorothiazide [Hydrodiuril] 25 mg PO DAILY 04/26/14 [History] Lisinopril [Zestril] 10 mg PO BID 04/26/14 [History] Metoprolol Tartrate [Lopressor] 25 mg PO BID 04/26/14 [History] Nitroglycerin Sl Tabs [Nitrostat] 0.4 mg SUBLINGUAL Q5M PRN 06/07/15 [History] Aspirin 81 mg PO DAILY 01/14/18 [History] Atorvastatin Calcium [Lipitor] 40 mg PO HS 01/14/18 [History] Cholecalciferol [Vitamin D3 (25 Mcg = 1000 Iu)] 1,000 unit PO HS 01/14/18 [History] Clopidogrel Bisulfate [Plavix] 75 mg PO DAILY 01/14/18 [History] Ferrous Sulfate [Iron (65 MG Elemental)] 325 mg PO DAILY 01/14/18 [History] Loratadine [Claritin] 10 mg PO DAILY 01/14/18 [History] [place]-3 Fatty Acids/Fish Oil [Fish Oil 1,000 mg Softgel] 1 cap PO BID 01/14/18 [History] Oxybutynin Chloride 5 mg PO TID 01/14/18 [History] Tamsulosin [Flomax] 0.4 mg PO DAILY 01/14/18 [History] predniSONE 50 mg PO DAILY #5 tablet 01/14/18 [Rx] Omeprazole [PriLOSEC] 40 mg PO AC-BRKFST #14 capsule. 10/17/19 [Rx] Follow up Appointment(s)/Referral(s): [facility],Clinic [Primary Care Provider] - 3 Days Discharge Disposition: HOME SELF-CARE
--- NOTE | 2019-10-17 10:51 | P.HPIM ---
History of Present Illness Patient is a pleasant 74-year-old male with history of coronary artery disease and stents in the past came in with compensative epigastric Pain which is mostly burning sensation started after eating ham and then he had another episode which lasted for a few minutes restarted even without eating. This is associated nausea denied any lightheadedness diaphoresis denied any shortness of breath moderate amount of a burning pain in the epigastric area and retrosternal area. Patient EKG did not show any acute ST-T wave changes chest x-ray within normal limits d-dimer is not elevated all other lab testing is essentially within norm al limits. Patient had a recent stress test which was positive because of which he underwent cardiac catheterization which was apparently normal and cardiology is awaiting on the the cardiac cath results if they're negative patient will be discharged. Patient had an ultrasound of the gallbladder which is appropriate which did not show any gallbladder disease patient appears to have gas dysphagia reflux disease patient will be discharged on empiric proton pump any better. Review of Systems REVIEW OF SYSTEMS: CONSTITUTIONAL: No fever, no malaise, no fatigue. HEENT: No recent visual problems or hearing problems. Denied any sore throat. CARDIOVASCULAR: No orthopnea, PND, no palpitations, no syncope. PULMONARY: No shortness of breath, no cough, no hemoptysis. GASTROINTESTINAL: No diarrhea, NEUROLOGICAL: No headaches, no weakness, no numbness. HEMATOLOGICAL: Denies any bleeding or petechiae. GENITOURINARY: Denies any burning micturition, frequency, or urgency. MUSCULOSKELETAL/RHEUMATOLOGICAL: Denies any joint pain, swelling, or any muscle pain. ENDOCRINE: Denies any polyuria or polydipsia. The rest of the 14-point review of systems is negative. Past Medical History Past Medical History: Coronary Artery Disease (CAD), Cancer, Hyperlipidemia, Hypertension Additional Past Medical History / Comment(s): Prostate CA/radiation History of Any Multi-Drug Resistant Organisms: None Reported Past Surgical History: Heart Catheterization With Stent Past Anesthesia/Blood Transfusion Reactions: No Reported Reaction Date of Last Stent Placement:: 2011 Past Psychological History: No Psychological Hx Reported, Depression, PTSD Smoking Status: Former smoker Past Alcohol Use History: Rare Past Drug Use History: None Reported - Past Family History Father Family Medical History: Blood Disorder, Coronary Artery Disease (CAD) Mother Family Medical History: Cancer, Coronary Artery Disease (CAD) Medications and Allergies Home Medications Medication Instructions Recorded Confirmed Type Hydrochlorothiazide [Hydrodiuril] 25 mg PO DAILY 04/26/14 01/14/18 History Lisinopril [Zestril] 10 mg PO BID 04/26/14 01/14/18 History Metoprolol Tartrate [Lopressor] 25 mg PO BID 04/26/14 01/14/18 History Nitroglycerin Sl Tabs [Nitrostat] 0.4 mg SUBLINGUAL Q5M PRN 06/07/15 01/14/18 History Aspirin 81 mg PO DAILY 01/14/18 01/14/18 History Atorvastatin Calcium [Lipitor] 40 mg PO HS 01/14/18 01/14/18 History Cholecalciferol [Vitamin D3 (25 1,000 unit PO HS 01/14/18 01/14/18 History Mcg = 1000 Iu)] Clopidogrel Bisulfate [Plavix] 75 mg PO DAILY 01/14/18 01/14/18 History Ferrous Sulfate [Iron (65 MG 325 mg PO DAILY 01/14/18 01/14/18 History Elemental)] Loratadine [Claritin] 10 mg PO DAILY 01/14/18 01/14/18 History [place]-3 Fatty Acids/Fish Oil [Fish 1 cap PO BID 01/14/18 01/14/18 History Oil 1,000 mg Softgel] Oxybutynin Chloride 5 mg PO TID 01/14/18 01/14/18 History Tamsulosin [Flomax] 0.4 mg PO DAILY 01/14/18 01/14/18 History predniSONE 50 mg PO DAILY #5 tablet 01/14/18 Rx Omeprazole [PriLOSEC] 40 mg PO AC-BRKFST #14 capsule. 10/17/19 Rx Allergies Allergy/AdvReac Type Severity Reaction Status Date / Time No Known Allergies Allergy Verified 10/16/19 19:26 Physical Exam Vitals: Vital Signs Temp Pulse Pulse Resp BP BP Pulse Ox 10/17/19 08:45 18 10/17/19 07:25 98.4 F 54 L 18 120/71 95 10/17/19 04:00 98.6 F 89 18 151/79 96 10/17/19 00:00 98.6 F 70 18 153/73 96 10/16/19 22:00 98.3 F 70 18 160/71 93 L 10/16/19 21:25 70 18 10/16/19 21:11 87 16 145/79 99 10/16/19 19:21 98.0 F 76 16 167/69 97 Intake and Output 10/16/19 10/17/19 10/17/19 22:59 06:59 14:59 Intake Total 240 Balance 240 Intake: Oral 240 Other: # Voids 1 Weight 108.409 kg 108.3 kg PHYSICAL EXAMINATION: GENERAL: The patient is alert and oriented x3, not in any acute distress. Obese HEENT: Pupils are round and equally reacting to light. EOMI. No scleral icterus. No conjunctival pallor. Normocephalic, atraumatic. No pharyngeal erythema. No thyromegaly. CARDIOVASCULAR: S1 and S2 present. No murmurs, rubs, or gallops. PULMONARY: Chest is clear to auscultation, no wheezing or crackles. ABDOMEN: Soft, nontender, nondistended, normoactive bowel sounds. No palpable organomegaly. MUSCULOSKELETAL: No joint swelling or deformity. EXTREMITIES: No cyanosis, clubbing, or pedal edema. NEUROLOGICAL: Gross neurological examination did not reveal any focal deficits. SKIN: No rashes. Results CBC & Chem 7: 10/16/19 20:00 10/16/19 20:00 Labs: Abnormal Lab Results - Last 24 Hours (Table) 10/16/19 10/17/19 Range/Units 20:00 02:51 Sodium 136 L (137-145) mmol/L BUN 27 H (9-20) mg/dL Glucose 117 H (74-99) mg/dL Calcium 10.3 H (8.4-10.2) mg/dL Triglycerides 505 H (<150) mg/dL HDL Cholesterol 28 L (40-60) mg/dL Thrombosis Risk Factor Assmnt - Choose All That Apply Any of the Below Risk Factors Present?: Yes Each Factor Represents 1 point: Acute [place], Obesity (BMI >25) Other Risk Factors: Yes Each Risk Factor Represents 2 Points: Age 61-74 years Other congenital or acquired thrombophilia - If yes, enter type in comment: No Thrombosis Risk Factor Assessment Total Risk Factor Score: 4 Thrombosis Risk Factor Assessment Level: Moderate Risk Assessment and Plan Plan: -Chest pain appears to be mostly gastroesophageal reflux disease or gastritis patient will be discharged on empiric proton inhibitor patient the was admitted to rule out a concurrent syndromes which we did patient had a recent cardiac catheterization no further intervention will be necessary at this time and patient will be discharged once cleared by cardiology -Hypertension -Hyperlipidemia -History of prostate cancer status post radiation therapy -Obesity -Coronary artery disease with previous stents as mentioned above Patient will be discharged as mentioned above
[2019-10-17 11:07] VITALS: BP 153/76; PULSE 61; TEMP 98
[2019-10-17] MEDS ORDERED: ATORVASTATIN 40 MG TAB PO SCH (21:00)
== END 2019-10-17 13:43 | disposition home or self-care (01) ==
LOC: EC 19:20 → 1SOBS 20:43
PROVIDERS: ADMIT Internal Medicine; ATTEND Internal Medicine
DX: R07.89 Other chest pain (principal); I25.10 Atherosclerotic heart disease of native coronary artery without angina pectoris; Z95.5 Presence of coronary angioplasty implant and graft; R10.13 Epigastric pain; I10 Essential (primary) hypertension; E78.5 Hyperlipidemia, unspecified; E78.1 Pure hyperglyceridemia; E66.9 Obesity, unspecified; Z68.36 Body mass index [BMI] 36.0-36.9, adult; Z79.51 Long term (current) use of inhaled steroids; Z79.899 Other long term (current) drug therapy; Z79.82 Long term (current) use of aspirin; Z87.891 Personal history of nicotine dependence; Z85.46 Personal history of malignant neoplasm of prostate; Z92.3 Personal history of irradiation; Z79.02 Long term (current) use of antithrombotics/antiplatelets; Z82.49 Family history of ischemic heart disease and other diseases of the circulatory system
CPT/HCPCS: 99285; 36415; 93005 ×2; 85379; 80061; 80053; 83735; 84484 ×2; 85025; 85610; 85730; 71046; 76705; G0378 ×2

== ENCOUNTER → 2020-02-17 | Outpatient (CLI) | payer OTHER ==
--- NOTE | 2020-02-17 15:09 | CT ---
EXAMINATION TYPE: CT chest wo con DATE OF EXAM: 02/17/2020 COMPARISON: None HISTORY: Persistant cough. CT DLP: 590.[address] of the chest was performed with lung and mediastinal window settings submitted. The la ck of contrast limits evaluation of the vascular, mediastinal and parenchymal structures including th e upper abdomen. LUNGS: The lungs are clear and free of infiltrate. No atelectasis. No pulmonary nodule or mass is de tected. No pleural effusion. No CT evidence of interstitial lung disease. Calcified granuloma left lower lobe. MEDIASTINUM/RADHA: Thoracic aorta is of normal caliber with limited evaluation given lack of contrast . The heart is not enlarged. No evidence for mediastinal mass. No lymph nodes greater than 1cm. UPPER ABDOMEN: No significant abnormality is seen. OTHER: No significant other abnormality. IMPRESSION: 1. Remote granulomatous disease.
== END | disposition home or self-care (01) ==
LOC: RADCTMAIN 14:42
DX: J84.10 Pulmonary fibrosis, unspecified (principal); R05 Cough
CPT/HCPCS: 71250

== ENCOUNTER → 2022-03-24 | Outpatient (CLI) | payer OTHER ==
--- NOTE | 2022-03-24 21:22 | MR ---
EXAMINATION TYPE: MR brain wo con DATE OF EXAM: 03/24/2022 COMPARISON: CT brain January 14, 2018 HISTORY: Chronic tension headache. TECHNIQUE: Multiplanar, multisequence imaging of the brain and brainstem is performed without IV cont rast. FINDINGS: Diffusion weighted images demonstrate no evidence of a recent infarct or other diffusion abnormality. There is mild ventricular and sulcal prominence. There are scattered and focal confluent areas of T2 hyperintensity seen throughout the superficial, deep, and periventricular white matter. Lesions are n onspecific in appearance and distribution. Midline structures demonstrate normal morphology. The craniocervical junction appears within normal limits. Normal vascular flow voids are present. There is dominant right vertebral artery. There are m ucous retention cysts and/or polyps along with mucosal thickening greater in the inferior right versu s left maxillary sinuses. Mild to moderate mucosal thickening involving ethmoid sinuses bilaterally. Globes are intact bilaterally. There is oval-shaped well-defined 3.6 x 0.8 cm mass in the high right frontal scalp soft tissue of T1 hyperintensity favoring benign lipoma. This what is present on prior CT likely stable in size. IMPRESSION: Mild diffuse age-related cerebral atrophy and moderate to advanced nonspecific white papo er changes felt to reflect product of chronic small vessel ischemic change in patient of this age.
--- NOTE | 2022-03-24 21:24 | MR ---
EXAMINATION TYPE: MR angio head wo con DATE OF EXAM: 03/24/2022 COMPARISON: Same day MR brain HISTORY: Chronic tension headache. TECHNIQUE: Time of flight images focusing on the [place] were performed without contrast.. 2-D and 3-D postprocessing imaging is performed.-Independent workstation. FINDINGS: There is dominant right vertebral artery filling the basilar artery. Small caliber left lary tebral artery shows some distal retrograde filling. Patent bilateral posterior communicating arteries smaller in caliber on the left noted. No significant focal stenosis or aneurysm in the posterior cir culation. Patent anterior communicating artery on axial image 109. No significant focal stenosis or aneurysm in the anterior circulation. IMPRESSION: No aneurysm at the level of the [place].
== END | disposition home or self-care (01) ==
LOC: RADMRIMAIN 18:47
DX: G44.221 Chronic tension-type headache, intractable (principal); G31.9 Degenerative disease of nervous system, unspecified; I67.82 Cerebral ischemia
CPT/HCPCS: 70544; 70551